=== PATIENT | male | born 1980 | race African-American/Black ===

== ENCOUNTER 2017-12-18 12:01 | Inpatient (IN) | payer SELFPAY ==
[~2017-12-18] VITALS: Ht 177.8 cm; Wt 79.4 kg
[2017-12-18] MEDS ORDERED: SODIUM CHLORIDE 0.9% 1,000 ML IV ONE (13:58)
[2017-12-18] MEDS ORDERED: MORPHINE SULFATE 4 MG/ML CPJ (NOT FOR IM USE) IV STA (13:58)
[2017-12-18] MEDS ORDERED: ONDANSETRON HCL 4MG/2ML INJ IV STA (13:58)
[2017-12-18] MEDS ORDERED: DIATR MEGLU/DIATRIZOATE SOLN 30ML PO ONE (14:00)
[2017-12-18] MEDS ORDERED: SODIUM CHLORIDE 0.9% 1000ML BAG (SEPSIS BOLUS) IV ONE (14:15)
[2017-12-18] MEDS ORDERED: PIPERACILLIN/TAZ 3.375G PREMIX 50 ML IV ONE (14:15)
[2017-12-18] MEDS ORDERED: VANCOMYCIN 1 G PREMIX 200 ML IV ONE ×2 (14:15→21:15)
[2017-12-18] MEDS ORDERED: DIATR MEGLU/DIATRIZOATE SOLN 30ML ONE (14:24)
[2017-12-18] MEDS ORDERED: ACYCLOVIR INJ 750 MG in DEXT 5% WATER 125 ML IV STA (14:25)
[2017-12-18 15:27] LABS: BASOPHILS % 0.8 % (0.0-2.0); EOSINOPHILS % 5.2 % (0.0-5.0); HEMATOCRIT. 38.1 % (42.0-52.0); HEMOGLOBIN. 12.7 g/dL (14.0-18.0); LYMPHOCYTES % 30.4 % (20.0-50.0); MEAN CORPUSCULAR HEMOGLOBIN 31.3 pg (28.0-32.0); MEAN CORPUSCULAR VOLUME 93.9 fL (80.0-94.0); MEAN PLATELET VOLUME 7.9 fl (7.4-10.4); MONOCYTES % 6.4 % (2.0-8.0); NEUTROPHILS % 57.2 % (40.0-76.0); PLATELET 317 x1000/uL (130-400); RED BLOOD CELL COUNT 4.06 mill/uL (4.7-6.1); RED CELL DISTRIBUTION WIDTH 12.7 % (11.6-14.6)
[2017-12-18 15:28] LABS: CHLORIDE 106 mEq/L (98-107)
[2017-12-18 15:55] LABS: PARTIAL THROMBOPLASTIN TIME 29.9 sec (23.4-31.0); PROTHROMBIN TIME 9.6 sec (9.1-11.1)
[2017-12-18] MEDS ORDERED: IOHEXOL-300 100 ML BOTTLE ONE (17:32)
[2017-12-18] MEDS ORDERED: MORPHINE SULFATE 4 MG/ML CPJ (NOT FOR IM USE) IV ONE (18:30)
[2017-12-18 18:58] LABS: CLARITY URINE CLEAR (CLEAR); COLOR URINE YELLOW (YELLOW); KETONES URINE NEGATIVE (NEGATIVE); NITRITE URINE NEGATIVE (NEGATIVE); OCCULT BLOOD URINE NEGATIVE (NEGATIVE); PH URINE 5.5 (4.5-8.0); PROTEIN URINE NEGATIVE (NEGATIVE); SPECIFIC GRAVITY URINE 1.015 (1.005-1.030)
[2017-12-18] MEDS ORDERED: ACYCLOVIR INJ 750 MG in DEXT 5% WATER 100 ML IV NR (19:00)
[2017-12-18 19:47] LABS: LEUKOCYTE ESTERASE URINE TRACE (NEGATIVE)
[2017-12-18 21:50] VITALS: BP 143/70
[2017-12-18] MEDS ORDERED: HYDROCODONE/ACETAMINOPHEN 5/325MG TABLET PO PRN (22:10)
[2017-12-18] MEDS ORDERED: ONDANSETRON HCL 4MG/2ML INJ IV PRN (22:10)
[2017-12-18] MEDS ORDERED: CLONIDINE 0.1MG TABLET PO PRN (22:11)
[2017-12-18] MEDS ORDERED: DOCUSATE SODIUM 100MG CAPSULE PO PRN (22:11)
[2017-12-18] MEDS ORDERED: GUAIFENESIN 200MG/10ML SUGAR FREE UDC PO PRN (22:11)
[2017-12-18] MEDS ORDERED: DIPHENHYDRAMINE 50MG/ML VIAL IV PRN (22:11)
[2017-12-18] MEDS ORDERED: ACETAMINOPHEN 325MG TABLET PO PRN (22:11)
[2017-12-18] MEDS ORDERED: LORAZEPAM 2MG/ML CPJ IV PRN (22:12)
[2017-12-18] MEDS ORDERED: IPRATROPIUM/ALBUTEROL 0.5-3(2.5)MG/3ML NEB INH PRN (22:14)
[2017-12-18] MEDS ORDERED: MORP100S3 MT (22:54)
[2017-12-18] MEDS ORDERED: HYDR-3282 PO (22:55)
[2017-12-18] MEDS: MORPHINE SULFATE 4 MG/ML CPJ (NOT FOR IM USE) IV PRN (23:09)
[2017-12-18] MEDS: SODIUM CHLORIDE 0.45% 1,000 ML IV SCH (23:09)
[2017-12-19] VITALS: BP 106/73
[2017-12-19] MEDS: PIPERACILLIN/TAZ 3.375G PREMIX 50 ML IV SCH ×2 (01:33→10:38)
[2017-12-19] MEDS: ACYCLOVIR INJ 500 MG in DEXT 5% WATER 100 ML IV SCH ×2 (02:49→12:29)
[2017-12-19 04:00] VITALS: BP 111/70
[2017-12-19 05:36] LABS: BASOPHILS % 0.7 % (0.0-2.0); EOSINOPHILS % 5.4 % (0.0-5.0); HEMOGLOBIN. 11.7 g/dL (14.0-18.0); LYMPHOCYTES % 25.5 % (20.0-50.0); MEAN CORPUSCULAR HEMOGLOBIN 31.4 pg (28.0-32.0); MEAN CORPUSCULAR VOLUME 93.7 fL (80.0-94.0); NEUTROPHILS % 60.4 % (40.0-76.0); PLATELET 271 x1000/uL (130-400); RED BLOOD CELL COUNT 3.74 mill/uL (4.7-6.1); RED CELL DISTRIBUTION WIDTH 12.9 % (11.6-14.6)
[2017-12-19 05:49] LABS: CHLORIDE 106 mEq/L (98-107)
[2017-12-19] MEDS: MORPHINE SULFATE 4 MG/ML CPJ (NOT FOR IM USE) IV PRN (06:04)
[2017-12-19 08:00] VITALS: BP 123/68
[2017-12-19] MEDS ORDERED: ENOXAPARIN 40MG/0.4ML SYR SUBCUT SCH (09:00)
[2017-12-19 12:00] VITALS: BP 117/73
[2017-12-19] MEDS: SODIUM CHLORIDE 0.45% 1,000 ML IV SCH (17:41)
[2017-12-19] MEDS ORDERED: PIPERACILLIN/TAZ 3.375G PREMIX 50 ML IV SCH (18:00)
[2017-12-19] MEDS ORDERED: ACYCLOVIR INJ 500 MG in DEXT 5% WATER 100 ML IV SCH (19:00)
[2017-12-21 10:10] LABS: HIV SCREEN 4G Non Reactive (Non Reactive)
== END 2017-12-19 18:34 | disposition left against medical advice (07) | DRG 385 ==
LOC: ER 13:12 → 6EST 17:43 → EDBEDREQ 17:43 → EDBEDREQTM 17:43 → ENRESERV 18:51
PROVIDERS: ADMIT Internal Medicine; ATTEND Internal Medicine
DX: A63.0 Anogenital (venereal) warts (principal); Z53.21 Procedure and treatment not carried out due to patient leaving prior to being seen by health care provider
CPT/HCPCS: 36415; 71045; 74177; 80053; 81003; 83605; 83690; 85025; 85610; 85730; 86703; 86850; 86900; 87040; 87070; 87077; 87086; 87205; 87252; 87389; 93005; 96365; 96375; 99285; J0133; J1650; J2270; J2543; J3370; J7030; J7060; Q9963; Q9967